=== PATIENT | female | born 1935 | race Caucasian/White ===

== ENCOUNTER → 2022-05-14 11:48 | Outpatient (BNVA) | payer MEDICARE, OTHER, SELFPAY | PROVIDERS: Family Provider Family Medicine; PCP Family Medicine; Visit Provider Family Medicine | DX: Z00.00 Encounter for general adult medical examination without abnormal findings (principal); I10 Essential (primary) hypertension; E87.1 Hypo-osmolality and hyponatremia | CPT/HCPCS: 80053; 80061; 84439; 84443; 85025 ==

== ENCOUNTER 2022-06-05 09:33 | Outpatient (CLI) | payer MEDICARE, OTHER, SELFPAY ==
--- NOTE | 2022-06-05 09:55 | MM_ITS ---
WS: [email or web address] BILATERAL SCREENING DIGITAL TOMOSYNTHESIS MAMMOGRAM WITH CAD HISTORY: SCREEN COMPARISON: None available. Bilateral CC and MLO views with tomosynthesis and synthetic mammography submitted. Computer aided det ection analyzed. Breast composition: There are scattered areas of fibroglandular density. No suspicious masses, microc alcifications or architectural distortion. Benign calcification lateral RIGHT breast. MM/[place] [id number] IMPRESSION: BI-RADS: 2-Benign FOLLOW UP: 1 Year Follow-up
== END 2022-06-05 09:34 | disposition home or self-care (01) ==
LOC: RAD 09:42
PROVIDERS: PCP Family Medicine; Visit Provider Family Medicine
DX: Z12.31 Encounter for screening mammogram for malignant neoplasm of breast (principal)
CPT/HCPCS: 77063; 77067

== ENCOUNTER → 2022-08-25 13:03 | Outpatient (BNVA) | payer MEDICARE, OTHER, SELFPAY | PROVIDERS: PCP Family Medicine; Visit Provider Internal Medicine | DX: I10 Essential (primary) hypertension (principal) | CPT/HCPCS: 99213 ==

== ENCOUNTER → 2022-11-27 10:30 | Outpatient (BNVA) | payer MEDICARE, OTHER, SELFPAY | PROVIDERS: PCP Family Medicine; Visit Provider Family Medicine | DX: Z51.81 Encounter for therapeutic drug level monitoring (principal); E03.9 Hypothyroidism, unspecified; I10 Essential (primary) hypertension; E87.1 Hypo-osmolality and hyponatremia | CPT/HCPCS: 80053; 84439; 84443; 85025 ==

== ENCOUNTER → 2023-05-27 09:42 | Outpatient (BNVA) | payer MEDICARE, OTHER, SELFPAY | PROVIDERS: PCP Family Medicine; Visit Provider Family Medicine | DX: Z51.81 Encounter for therapeutic drug level monitoring (principal); E55.9 Vitamin D deficiency, unspecified; E03.9 Hypothyroidism, unspecified; I10 Essential (primary) hypertension | CPT/HCPCS: 80053; 82306; 84439; 84443; 85025 ==

== ENCOUNTER 2023-08-03 09:18 | Outpatient (CLI) | payer MEDICARE, OTHER, SELFPAY ==
--- NOTE | 2023-08-03 09:30 | MM_ITS ---
WS: [email or web address] SCREENING DIGITAL BREAST TOMOSYNTHESIS MAMMOGRAM WITH CAD HISTORY: Screening COMPARISON: 06/05/2022 Bilateral CC and MLO with tomosynthesis and synthetic mammography submitted. Computer aided detection analyzed. Breast composition: There are scattered areas of fibroglandular density. There is an enlarging 6 x 5 mm partially obscured mass in the RIGHT breast just medial to the nipple line inferior to the nipple line which needs to be further evaluated. There is a benign calcification also in the RIGHT breast. MM/[place] [id number] IMPRESSION: BI-RADS: 0-Incomplete: Need additional imaging evaluation FOLLOW UP: Need Additional Imaging RIGHT breast: Spot compression views (CC and MLO). True ML. Ultrasound to follo w if abnormality persists.
== END 2023-08-03 09:19 | disposition home or self-care (01) ==
LOC: RAD 09:18
PROVIDERS: PCP Family Medicine; Visit Provider Family Medicine
DX: Z12.31 Encounter for screening mammogram for malignant neoplasm of breast (principal); R92.323 Mammographic fibroglandular density, bilateral breasts; N63.10 Unspecified lump in the right breast, unspecified quadrant; R92.1 Mammographic calcification found on diagnostic imaging of breast
CPT/HCPCS: 77063; 77067

== ENCOUNTER 2023-08-31 12:45 | Outpatient (CLI) | payer MEDICARE, OTHER, SELFPAY ==
--- NOTE | 2023-08-31 13:00 | MM_ITS ---
WS: [email or web address] ADDITIONAL VIEWS RIGHT MAMMOGRAM WITH DIGITAL BREAST TOMOSYNTHESIS. RIGHT BREAST ULTRASOUND HISTORY: Abnormal mammogram - right breast COMPARISON: 08/03/2023, 06/05/2022 RIGHT MAMMOGRAM: Spot compression views and true ML with digital breast tomosynthesis and SM. Persistent 7 mm mass in the medial RIGHT breast near 4:00. This is just beneath the nipple line. Ther e is an additional asymmetry noted on the RIGHT MLO projection just posterior to the nipple near 12:0 0 measuring 9 mm. There is a benign calcification. RIGHT BREAST ULTRASOUND 2-D and color Doppler imaging submitted. RIGHT breast ultrasound at 12:00 is negative. At 4:00, 2 cm from the nipple is a cyst measuring 5 x 5 x 3 mm corresponding to the mammographic abnormality. MM/[place] [id number] IMPRESSION: BI-RADS: 2-Benign FOLLOW UP: 1 Year Follow-up Benign cyst RIGHT breast at 4:00.
--- NOTE | 2023-08-31 13:45 | US_ITS ---
WS: [email or web address] ADDITIONAL VIEWS RIGHT MAMMOGRAM WITH DIGITAL BREAST TOMOSYNTHESIS. RIGHT BREAST ULTRASOUND HISTORY: Abnormal mammogram - right breast COMPARISON: 08/03/2023, 06/05/2022 RIGHT MAMMOGRAM: Spot compression views and true ML with digital breast tomosynthesis and SM. Persistent 7 mm mass in the medial RIGHT breast near 4:00. This is just beneath the nipple line. Ther e is an additional asymmetry noted on the RIGHT MLO projection just posterior to the nipple near 12:0 0 measuring 9 mm. There is a benign calcification. RIGHT BREAST ULTRASOUND 2-D and color Doppler imaging submitted. RIGHT breast ultrasound at 12:00 is negative. At 4:00, 2 cm from the nipple is a cyst measuring 5 x 5 x 3 mm corresponding to the mammographic abnormality. US/US breast RT limited* [id number] IMPRESSION: BI-RADS: 2-Benign FOLLOW UP: 1 Year Follow-up Benign cyst RIGHT breast at 4:00.
== END 2023-08-31 12:46 | disposition home or self-care (01) ==
LOC: RAD 12:45
PROVIDERS: PCP Family Medicine; Visit Provider Family Medicine
DX: R92.8 Other abnormal and inconclusive findings on diagnostic imaging of breast (principal); N63.14 Unspecified lump in the right breast, lower inner quadrant; N64.89 Other specified disorders of breast
CPT/HCPCS: 76642; 77061; G0279